=== PATIENT | male | born 1955 | race Caucasian/White ===

== ENCOUNTER 2019-11-22 08:52 | Outpatient (CLI) | payer OTHER, SELFPAY ==
[2019-11-22 09:33] LABS: Basophils Percent Auto 0.4 % (0.2-1.2); Eosinophils Absolute Auto 0.4 K/mm3 (0-0.3); Eosinophils Percent Auto 4.4 % (0-4.4); Hematocrit 35.6 % (42.0-52.0); Hemoglobin 11.9 g/dL (14.0-18.0); Immature Granulocyte Absolute 0.05 K/mm3 (0.00-0.031); Immature Granulocyte Percent A 0.6 % (0-0.5); Lymphocytes Percent Auto 16.4 % (18.3-44.2); Mean Corpuscular HGB Conc 33.4 g/dl (32-36); Mean Corpuscular Hemoglobin 29.4 pg (26-34); Mean Corpuscular Volume 87.9 fl (80-100); Monocytes Absolute Auto 0.6 K/mm3 (0.1-0.6); Monocytes Percent Auto 7.7 % (2.6-8.5); Neutrophils Absolute Auto 5.6 K/mm3 (1.3-6.7); Neutrophils Percent Auto 70.5 % (45.5-73.1); Platelet Count Result 278 k/mm3 (150-375); Red Blood Count 4.05 M/mm3 (4.6-6.20)
--- NOTE | 2019-11-22 09:36 | ECG_ITS ---
Measurements Intervals [place] Rate: 91 P: 71 MS: 145 QRS: -14 QRSD: 97 T: 91 QT: 355 QTc: 437 Interpretive Statements SINUS RHYTHM WITH SINUS ARRHYTHMIA POSSIBLE LEFT ATRIAL ENLARGEMENT RSR' IN V1 OR V2, CONSIDER RIGHT VENTRICULAR HYPERTROPHY OR RIGHT VCD NONSPECIFIC ST & T-WAVE ABNORMALITY- LATERAL LEADS BASELINE ARTIFACT- II, III, AVL, AVF, V5-V6 BORDERLINE ECG Electronically Signed On 11-22-2019 9:54:09 [employer] by Boston Conde D.O.
[2019-11-22 09:41] LABS: Hemoglobin A1C 5.3 % (<5.7)
[2019-11-22 09:48] LABS: Alanine Aminotransferase 16 U/L (4-50); Albumin Level 4.2 g/dL (3.5-5.1); Alkaline Phosphatase 57 U/L (38-126); Aspartate Amino Transferase 20 U/L (17-59); Bilirubin,Total 0.5 mg/dL (0.2-1.3); Blood Urea Nitrogen 18 mg/dL (9-20); Calcium 8.2 mg/dL (8.4-10.2); Carbon Dioxide 25 mmol/L (22-30); Chloride 94 mmol/L (98-107); Cholesterol 168 mg/dL (0-200); Estimated Glomerular Filt Rate > 60; Glucose 104 mg/dL (75-110); HDL Direct 63 mg/dL; Potassium 4.2 mmol/L (3.4-5.0); Sodium 133 mmol/L (137-145); Triglycerides 98 mg/dL (<150)
[2019-11-22 09:58] LABS: LDL Cholesterol Direct 84 mg/dL
[2019-11-22 10:06] LABS: Iron 56 ug/dL (49-181)
[2019-11-22 10:16] LABS: Percent Iron Saturation 20 % (20-50)
[2019-11-22 10:18] LABS: Prostate Specific Antigen 0.6 ng/mL (< OR = 4.0)
== END 2019-11-22 08:53 | disposition home or self-care (01) ==
PROVIDERS: PCP Internal Medicine; Visit Provider Internal Medicine
DX: I10 Essential (primary) hypertension (principal); Z79.899 Other long term (current) drug therapy; Z12.5 Encounter for screening for malignant neoplasm of prostate; D64.9 Anemia, unspecified
CPT/HCPCS: 36415; 80053; 80061; 82728; 83036; 83540; 83550; 84153; 84443; 85025; 93005; G0103

== ENCOUNTER 2019-12-09 13:49 | Outpatient (CLI) | payer OTHER, SELFPAY ==
--- NOTE | 2019-12-09 14:03 | ECHO_ITS ---
Patient Info Name: Hi Bonner Age: 64 years : 1955 Gender: Male Ht: 66 in Wt: 160 lbs BSA: 1.85 m2 HR: 80 bpm BP: 144 / 89 mmHg Heart Rhythm: Sinus Arrhythmia Technical Quality: Good Exam Date: 12/09/2019 2:11 PM Exam Location: [facility] Patient Status: Outpatient Admit Date: 12/09/2019 Staff Ordering Physician: Prosper Brannon MD [employer] Priming Operator: Vladislav Moore RDCS Attending Provider: Prosper Brannon MD Exam Type: CA echo doppler color flow Study Info Indications R01.1 - Cardiac murmur, unspecified Complete two-dimensional, color flow and Doppler transthoracic echocardiogram is performed. History/Risk Factors Murmur, palpitations. Summary 1. Left ventricular chamber dimension is mildly enlarged. 2. Left ventricular systolic function is normal, estimated at 55-60%. 3. There is mildly increased left ventricular wall thickness. 4. The left ventricular diastolic function is normal. 5. E/e' 9 is minimally elevated. 6. Left atrial chamber dimension is severely enlarged. 7. The mitral valve has moderate posterior prolapse. 8. There is mild mitral valve regurgitation. 9. There is mild tricuspid valve regurgitation. 10. Moderate pulmonary hypertension, estimated pulmonary arterial systolic pressure is 50 mmHg. Left Ventricle E/e' 9 is minimally elevated. Left ventricular chamber dimension is mildly enlarged. Left ventricular systolic function is normal, estimated at 55-60%. There is mildly increased left ventricular wall thickness. The left ventricular diastolic function is normal. Right Ventricle Right ventricular chamber dimension is normal. Right ventricular systolic function is normal. Left Atria Left atrial chamber dimension is severely enlarged. Right Atria Right atrial chamber dimension is normal. Aortic Valve The aortic valve is trileaflet. There is no aortic valve stenosis. There is no aortic valve regurgitation. Pulmonic Valve There is no pulmonic regurgitation. Mitral Valve The mitral valve has moderate posterior prolapse. There is no mitral valve stenosis. There is mild mitral valve regurgitation. Tricuspid Valve There is mild tricuspid valve regurgitation. Moderate pulmonary hypertension, estimated pulmonary arterial systolic pressure is 50 mmHg. Pericardium/Pleural There is no pericardial effusion. Inferior Vena Cava Normal inferior vena cava with >50% collapse upon inspiration consistent with normal right atrial pressure, 5 mmHg. Aorta The aortic root size at the sinus of Valsalva is normal. Left Ventricular Outflow Tract Name Value Normal LVOT 2D LVOT Diameter 2.0 cm LVOT Doppler LVOT Peak Gradient 5 mmHg LVOT Mean Gradient 2 mmHg LVOT VTI 14 cm LVOT VTI/AV VTI Ratio 0.8 LVOT Stroke Volume 45 ml LVOT CO 3.5 l/min LVOT CI 1.9 l/min/m2 Mitral Valve
== END 2019-12-09 13:50 | disposition home or self-care (01) ==
PROVIDERS: PCP Internal Medicine; Visit Provider Internal Medicine
DX: R01.1 Cardiac murmur, unspecified (principal); I10 Essential (primary) hypertension; I51.7 Cardiomegaly; I34.1 Nonrheumatic mitral (valve) prolapse; I08.1 Rheumatic disorders of both mitral and tricuspid valves; I27.20 Pulmonary hypertension, unspecified
CPT/HCPCS: 93306

== ENCOUNTER 2021-01-13 13:04 | Inpatient (IN) | payer OTHER, SELFPAY ==
[2021-01-13] VITALS (24 sets, daily range): BP systolic 73–128; BP diastolic 48–105; PULSE 87–147; RESP 16–22; TEMP 36.1–36.6; O2SAT 93–100
--- NOTE | ~2021-01-13 | US_ITS ---
EXAMINATION: US venous doppler [facility] DATE: 01/14/2021 11:54 INDICATION: Lower limb edema. TECHNIQUE: Grayscale ultrasound images without and with compression and Doppler ultrasound images of the bilateral lower extremity veins were obtained. COMPARISON: None. FINDINGS: The visualized portions of right common femoral vein, profunda (deep) femoral vein, femoral vein, pop liteal vein, peroneal veins, posterior tibial veins, and greater saphenous vein outflow are patent. The visualized portions of left common femoral vein, profunda femoral vein, femoral vein, popliteal v ein, peroneal veins, posterior tibial veins, and greater saphenous vein outflow are patent. IMPRESSION: 1. No deep venous thrombosis. Reviewed, dictated and finalized at location B.
--- NOTE | ~2021-01-13 | US_ITS ---
EXAMINATION: US abdomen limited DATE: 01/14/2021 11:54 INDICATION: Abnormal liver function tests. TECHNIQUE: Multiple grayscale and Doppler ultrasound images of the abdomen were obtained. COMPARISON: Chest CT 01/14/2021 FINDINGS: The pancreas is obscured by bowel gas. The liver is normal without focal lesion. No liver s urface nodularity. There is bidirectional flow in main portal vein. The gallbladder is normal in size . No gallstones or gallbladder wall thickening. There was no sonographic Escoto sign. The common duct is normal and measures 1 mm. IMPRESSION: 1. Bidirectional flow in main portal vein, which may be seen with right heart failure or tricuspid re gurgitation. Reviewed, dictated and finalized at location B. IMPRESSION: 1. Bidirectional flow in main portal vein, which may be seen with right heart f ailure or tricuspid regurgitation.
--- NOTE | ~2021-01-13 | CT_ITS ---
EXAMINATION:CT chest high resolution wo co DATE: 01/14/2021 11:06 INDICATION: Aortic arch abnormality. Lung infiltrates. TECHNIQUE: Computed tomography (CT) of the chest was performed without intravenous contrast. Automate d exposure control and iterative reconstruction technique were employed. The dose-length product (DLP ) was 177.77 mGy-cm. COMPARISON: Chest single view 01/13/2021 FINDINGS: There is elevation of left hemidiaphragm. There are small pleural effusions, right worse th an left. There are patchy airspace and groundglass opacities in right lung. There is mild atelectasis in left lung. A calcified left lung nodules consistent with old granulomatous disease. 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 Cardiomegaly is noted. There are calcific ations of the coronary arteries and aortic valve. No pericardial effusion. There is thoracic levoscol iosis. IMPRESSION: 1. Patchy airspace and groundglass opacities in right lung, consistent with pneumonia versus asymmetr ic pulmonary edema. 2. Small pleural effusions, right worse than left. 3. Cardiomegaly. 4. Right-sided aortic arch with aberrant left subclavian artery. 5. Elevation of left hemidiaphragm. Reviewed, dictated and finalized at location B. IMPRESSION: 1. Patchy airspace and groundglass opacities in right lung, consistent with pne umonia versus asymmetric pulmonary edema. 2. Small pleural effusions, right worse than left. 3. Cardiomegaly. 4. Right-sided aortic arch with aberrant left subclavian artery. 5. Elevation of left hemidiaphragm.
--- NOTE | ~2021-01-13 | XR_ITS ---
EXAMINATION: XR chest 1V portable DATE: 01/13/2021 14:21 INDICATION: Shortness of breath TECHNIQUE: frontal view of the chest was obtained. COMPARISON: None FINDINGS: Elevation of the left hemidiaphragm. Patchy airspace opacities in the right mid to lower and left low er lung zones. Blunting at the right costophrenic angle consistent with small right pleural effusion. No pneumothorax. Enlarged cardiac silhouette. Abnormal mediastinal contour suggesting a right-sided aortic arch. Upper thoracic levoscoliosis. Old healed left clavicle fracture deformity. IMPRESSION: 1. Patchy opacities in the right mid to lower and left lower lung zones suspicious for pneumonia. 2. Small left pleural effusion. 3. Elevation of the left hemidiaphragm. 4. Enlarged cardiac silhouette which could be due to cardiomegaly and/or pericardial effusion.. 5. Abnormal mediastinal contour suggesting an anatomic variant right-sided aortic arch. Correlate wit h clinical history and any prior outside imaging. Alternatively could consider contrast-enhanced ches t CT for further evaluation. Reviewed, dictated and finalized at location A. IMPRESSION: 1. Patchy opacities in the right mid to lower and left lower lung zones suspici ous for pneumonia. 2. Small left pleural effusion. 3. Elevation of the left hemidiaphragm. 4. Enlarged cardiac silhouette which could be due to cardiomegaly and/or perica rdial effusion.. 5. Abnormal mediastinal contour suggesting an anatomic variant right-sided aort ic arch. Correlate with clinical history and any prior outside imaging. Alterna tively could consider contrast-enhanced chest CT for further evaluation.
--- NOTE | ~2021-01-13 | CT_ITS ---
EXAMINATION: CT abdomen pelvis w con DATE: 01/15/2021 15:20 INDICATION: Rectosigmoid mass. TECHNIQUE: Computed tomography (CT) of the abdomen and pelvis was performed with 100 mL Omnipaque-350 intravenous contrast. Automated exposure control and iterative reconstruction technique were employe d. The dose-length product was 518.31 mGy-cm. COMPARISON: Chest CT dated 01/14/2021 FINDINGS: Elevation of the left hemidiaphragm. Small posteriorly layering right pleural effusion with dependent compressive atelectasis in the right lower lobe. Moderate cardiomegaly. No pericardial effusion. Seema er, visualized portion of the spleen, pancreas and right adrenal gland are normal. There is diffuse t hickening of the left adrenal gland without discrete adrenal mass. Bilateral kidneys are normal. Ther e is a halo of haziness surrounding the otherwise normal-appearing gallbladder. Circumferential enhan cing wall thickening at the rectosigmoid junction suspicious for malignancy. No bowel obstruction. Th e appendix is not visualized. No pericecal inflammatory change to suggest acute appendicitis. There are a few bladder diverticula. Small bilateral fat-containing inguinal hernias. Mild lumbar levocurva ture with moderate spondylosis. No free intraperitoneal gas or fluid. Diffuse body wall edema, mesent eduin and retroperitoneal edema. Multiple mildly prominent but still normal-sized lymph nodes extendin g bilaterally from the inguinal regions into the retroperitoneal abdomen. No pathologically enlarged lymphadenopathy. Mild lumbar levocurvature with moderate spondylosis. No suspicious lytic or blastic bone lesions. IMPRESSION: 1. Circumferential wall thickening at the rectosigmoid junction suspicious for malignancy. No definit emilia metastatic disease. 2. Moderate cardiomegaly. 3. Small right pleural effusion. 4. Mild diffuse soft tissue edema in the body wall and mesenteric and retroperitoneal fat. Reviewed, dictated and finalized at location A. IMPRESSION: 1. Circumferential wall thickening at the rectosigmoid junction suspicious for malignancy. No definitive metastatic disease. 2. Moderate cardiomegaly. 3. Small right pleural effusion. 4. Mild diffuse soft tissue edema in the body wall and mesenteric and retroperi toneal fat.
--- NOTE | 2021-01-13 13:31 | ECG_ITS ---
Measurements Intervals [place] Rate: 135 P: AL: 0 QRS: -39 QRSD: 109 T: 168 QT: 323 QTc: 485 Interpretive Statements ATRIAL FIBRILLATION WITH RAPID VENTRICULAR RESPONSE LEFT AXIS DEVIATION INCOMPLETE RIGHT BUNDLE BRANCH BLOCK BORDERLINE ST-T WAVE ABNORMALITY- ANTEROLAT/HIGH LAT LEADS BASELINE WANDER- I, III ABNORMAL ECG Electronically Signed On 01-13-2021 21:49:28 CDT by Boston Conde D.O.
--- NOTE | 2021-01-13 13:41 | ED.GENADULT ---
HPI - General Adult General Chief complaint: Weakness Stated complaint: UNABLE TO AMBULATE,LE EDEMA Time Seen by Provider: 01/13/21 13:10 Source: patient History of Present Illness HPI narrative: Patient is a 65 y/o male complaining of severe weakness starting today. He states that he is unable to get up from couch today. There is no know alleviating or exacerbating factor. He also complains of SOB, bilateral leg swelling. He has no chest pain. Of note, he has A fib on Amiodarone. He has history of GI bleed, but refused work up in the past. Related Data Home Medications Medication Instructions Recorded Confirmed lisinopril-hydrochlorothiazide 1 tablet PO DAILY 01/13/21 01/13/21 metoprolol tartrate 25 mg PO Q6H 01/13/21 01/13/21 Allergies Allergy/AdvReac Type Severity Reaction Status Date / Time No Known Allergies Allergy Verified 01/13/21 14:21 Review of Systems Constitutional: Constitutional: Denies chills, Denies fever(s), Denies headache(s) and Reports weakness Eyes: Eyes: Denies blurry vision ENT: Denies headache(s) and Denies neck pain Cardiovascular: Cardiovascular: Denies chest pain, Reports leg edema and Reports dyspnea Respiratory: Respiratory: Denies cough and Reports dyspnea Gastrointestinal: Gastrointestinal: Denies abdominal pain, Denies diarrhea, Denies nausea and Denies vomiting Genitourinary: Genitourinary: Denies hematuria and Denies dysuria Musculoskeletal: Musculoskeletal: Denies back pain and Denies neck pain Neurologic: Denies headache(s) and Reports weakness [facility] Past Medical History Medical History Anemia Family History Family History (Updated 01/13/21 @ 16:54 by NAVDEEP Suresh) Mother Pleurisy Social History Social History Smoking status: Never smoker Alcohol intake: current Drinks per week: 7 Gender identity (if verbalized by the patient): Male Spiritual care concerns: No Exam Const: General: no acute distress and well developed Orientation/consciousness: oriented to person, oriented to place, oriented to time and patient oriented x3 HENMT: Head: normocephalic Ears: external ears normal General nose exam: Normal external nose present Eyes: General: appearance normal, both eyes and all related structures Conjunctivae: conjunctivae normal Neck: Neck: normal visual inspection and full ROM Chest: Chest palpation & inspection: normal inspection of the chest and no tenderness Resp: Effort & Inspection: normal respiratory effort Auscultation: clear to auscultation bilaterally Cardio: Rate: tachycardic Rhythm: abnormal rhythm irregularly irregular GI: GI Palp: No abdominal tenderness and Yes Soft to palpation Skin: General skin exam: normal color and turgor normal Neuro: General: oriented to person, oriented to place, oriented to time and patient oriented x3 Cognition (Neuro): normal cognition Extrem: General: normal to inspection, full ROM and edema bilateral Psych: Appearance: grossly normal Mental Status: mental status grossly normal Affect: normal affect Course Consultations Consultation #1: Discussed with Dr. Conde, who agrees to consult. He will see the patient tomorrow. Date: 01/13/21 Time: 14:48 Consultation #2: Discussed with BURTON Vásquez, who agrees to admit. Date: 01/13/21 Time: 15:03 Consultation #3: Discussed with Dr. Jennings, who agrees to consult. He states that Dr. Xiong will see the patient tomorrow. Date: 01/13/21 Time: 15:28 Vital Signs Vital signs: Vital Signs Temperature 36.5 C 01/13/21 13:04 Pulse Rate 129 H 01/13/21 13:04 Respiratory Rate 22 H 01/13/21 13:04 Blood Pressure 106/85 01/13/21 13:04 Pulse Oximetry 99 01/13/21 13:04 Temperature 36.1 C L 01/13/21 18:46 Pulse Rate 120 H 01/13/21 18:46 Respiratory Rate 16 01/13/21 18:46 Blood Pressure 120/78 01/13/21 18:46 Pulse Ox
[2021-01-13] MEDS: DIGOXIN INJ 250 MCG/ML 2 ML AMP (*BKC) 500 MCG IV PUSH (14:17)
[2021-01-13] MEDS: FUROSEMIDE INJ 40 MG/4 ML VIAL IV PUSH (14:17)
[2021-01-13 14:20] LABS: Hematocrit 23.1 % (42.0-52.0); Mean Corpuscular HGB Conc 28.1 g/dl (32-36); Mean Corpuscular Hemoglobin 18.2 pg (26-34); Mean Corpuscular Volume 64.5 fl (80-100); Mean Platelet Volume 9.9 fl (7.4-10.4); Platelet Count Result 562 k/mm3 (150-375); Red Blood Count 3.58 M/mm3 (4.6-6.20); Red Cell Distribution Width 19.7 % (11.5-14.5); White Blood Count 16.9 K/mm3 (4.5-10.0)
[2021-01-13 14:30] LABS: INR 1.2; Prothrombin Time 16.1 Seconds (11.1-14.7)
[2021-01-13 14:31] LABS: Partial Thromboplastin Time 30.6 SECONDS (22.3-36.8)
[2021-01-13 14:34] LABS: Alanine Aminotransferase 218 U/L (4-50); Albumin Level 4.1 g/dL (3.5-5.1); Alkaline Phosphatase 178 U/L (38-126); Anion Gap 13 mmol/L (8-16); Aspartate Amino Transferase 204 U/L (17-59); Bilirubin,Total 0.8 mg/dL (0.2-1.3); Blood Urea Nitrogen 58 mg/dL (9-20); Calcium 8.3 mg/dL (8.4-10.2); Carbon Dioxide 23 mmol/L (22-30); Chloride 94 mmol/L (98-107); Estimated CRCL calculation 53 ml/min; Estimated Glomerular Filt Rate > 60; Glucose 98 mg/dL (75-110); Potassium 4.2 mmol/L (3.4-5.0); Sodium 130 mmol/L (137-145)
[2021-01-13 14:38] LABS: Hemoglobin 6.5 g/dL (14.0-18.0)
[2021-01-13 14:44] LABS: Band Neutrophils Percent 1 % (0-6); Lymphocytes Absolute Manual 1.35 K/mm3 (1.1-4.5); Monocytes Absolute Manual 0.33 K/mm3 (0.1-0.90); Monocytes Percent Manual 2 % (3-9); Neutrophils Absolute Manual 15.21 K/mm3 (1.3-6.7); Neutrophils Percent Manual 89 % (46-73); Nucleated Red Blood Cells 14 %; Total Cells Counted 100
[2021-01-13 14:45] LABS: Platelet Estimate Increased (Adequate)
[2021-01-13 14:46] LABS: NT Pro B Type Natriuretic Pept 10700 PG/ML (5-100); Troponin I 0.013 ng/mL (0.000-0.034)
[2021-01-13 14:47] LABS: Target Cells 1+ (NORMAL)
[2021-01-13 14:48] LABS: Anisocytosis 3+ (NORMAL); Hypochromasia 1+ (NORMAL)
[2021-01-13 14:53] LABS: Acanthocytes 1+ (NORMAL)
--- NOTE | 2021-01-13 16:46 | ADMGEN ---
This patient, Hi Bonner, was admitted to IMU Room 201-01 at 1625. Patient/family oriented to hospital policies and general routines including ID bracelet, bed and alarms, visiting hours, pain management, procedures, bathroom and other care routines, personal items, smoking policy, room service/diet, and visiting hours. Information on how to activate the Rapid Response Team has been discussed. Patient/Family are encouraged to report perceived risks to care and to ask questions if they do not understand what they are told or what they should do.
[2021-01-13] MEDS: TUBING, BLOOD PLUM PUMP TUBING 1 EACH XX (17:32)
[2021-01-13] MEDS: SODIUM CHLORIDE 0.9% IV 250 ML 30 ML IV CONT ×2 (17:32→23:00)
[2021-01-13 19:08] LABS: Lactate Dehydrogenase 1092 U/L (313-618)
--- NOTE | 2021-01-13 19:15 | PM.IMHP ---
H&P: HPI History of Present Illness Date/Time: 01/13/21 19:15 Chief Complaint: Generalized weakness. Narrative: This is a pleasant 65-year-old male with diastolic congestive heart failure, mitral valve prolapse, and atrial fibrillation who presented to the emergency department earlier today via EMS from home for evaluation of generalized weakness. Initially he reported that he had sudden onset of weakness yesterday to the point where he could not even get up out of bed this morning to ambulate however with further questioning it sounds as though he has become progressively more weak over the last couple of months. Aside from the weakness, he also notes progressive dyspnea on exertion, orthopnea, increasing lower extremity edema, and feelings of irregular heartbeat. He was diagnosed with atrial fibrillation on 12/11/2020 and was started on amiodarone by his primary care provider. Although he was not started on anticoagulation due to iron deficiency anemia and the fact that he continues to refuse evaluation for such despite Hemoccult-positive stool. He was recently seen by his general maintenance mechanic, Dr. Conde and was started on metoprolol tartrate 25 mg due to rapid heart rate. In the ED today he was found to have worsening anemia with a hemoglobin and hematocrit of 6.5 and 23.1 respectively and he is being admitted in this setting. Additionally he was in atrial fibrillation with rapid ventricular response and was given a dose of digoxin with some improvement in his rate. At the time my evaluation he admits to being quite anxious and says he worries quite a bit. He thinks maybe he saw a little bit of blood in his stool within the last week or so however not in significant quantities. He is not having any chest pain or pleuritic pain. He also denies fever, chills, and sweats. No sinus congestion, rhinorrhea, otalgia, or odynophagia. He denies cough. No sick contacts. Appetite has been as per usual. He has not had nausea or vomiting. Review of Systems Review of Systems: Narrative: Twelve systems were reviewed with pertinent positives and negatives as per HPI. Denies sick contacts. No exposure to those positive for COVID-19. He belches frequently. No heartburn or indigestion. He denies abdominal bloating, epigastric, and abdominal pain. He does not use NSAIDs. He drinks about 5 cups of coffee a day and maybe 1 beer a night. No history of thyroid disease or sleep apnea. Except as documented, all other systems were reviewed and are negative. [facility] Past Medical History Medical History (Updated 01/13/21 @ 20:35 by Thalia Hopkins PA-C) Atrial fibrillation Congestive heart failure Echocardiogram in November 2019 showed ejection fraction 55 to 60% with mild LVH and severe left atrial enlargement. Dyslipidemia Essential hypertension Iron deficiency anemia Iron studies in November 2020 as follows: Total iron < 10, % saturation 1.10, TIBC 456, ferritin 3. Mitral valve prolapse Moderate posterior mitral valve prolapse on echocardiogram dated 12/09/2019. Surgical History Surgical History (Updated 01/13/21 @ 20:29 by Thalia Hopkins PA-C) No history of previous surgery Family History Family History Mother Pleurisy Social History Social History (Updated 01/13/21 @ 20:29 by Thalia Hopkins PA-C) Social History: Surrogate decision maker: Giorgi Bonner, brother. Code status: Full code. Smoking status: Never smoker Alcohol intake: current Drinks per week: 7 Substance use: never Additional living arrangements comments: The patient shares a home in [place] with his cat, Brian. Additional occupation/education comments: Disabled. Gender identity (if verbalized by the patient): Male Spiritual care concerns: No Meds Home Medications and Allergies Home Medications Medication Instructions Recorded Confirmed Type amiodarone 200 mg tablet 200 mg PO B
[2021-01-13 19:21] LABS: Troponin I 0.018 ng/mL (0.000-0.034)
[2021-01-13] MEDS: FUROSEMIDE INJ 40 MG/4 ML VIAL 20 MG IV PUSH (21:12)
[2021-01-13 21:43] LABS: Add Urine Microscopic? YES; Appearance Urine Clear (Clear); Bilirubin Urine Negative (Negative); Blood Urine Negative (Negative); Color Urine Yellow (Yellow); Glucose Urine UA Negative (Negative); Ketones Urine Negative (Negative); Leukocyte Esterase Ur Trace LEU/UL (Negative); Mucus Urine Rare /lpf; Nitrate Urine Negative (Negative); Protein Urine Negative (Negative); RBC Urine 0-2 /hpf (0-2); Specific Grav Ur 1.011 (1.001-1.035); Squamous Epithelial Cell Urine Rare /hpf (Few); Urobilinogen Urine Negative mg/dL (<2.0); WBC Urine 0-3 /hpf
[2021-01-13] MEDS: PANTOPRAZOLE SODIUM IV 40 MG VIAL IV PUSH (21:46)
[2021-01-13] MEDS: METOPROLOL TARTRATE 25 MG TABLET PO (21:46)
[2021-01-13 21:55] LABS: Alanine Aminotransferase 221 U/L (4-50); Albumin Level 3.8 g/dL (3.5-5.1); Alkaline Phosphatase 158 U/L (38-126); Aspartate Amino Transferase 196 U/L (17-59); Bilirubin,Total 0.7 mg/dL (0.2-1.3); Creatine Kinase 368 U/L (55-170)
[2021-01-13 22:44] LABS: Troponin I 0.015 ng/mL (0.000-0.034)
[2021-01-13 23:29] LABS: Free T4 Free Thyroxine Reflex 1.43 ng/dL (0.78-2.19)
[2021-01-14] VITALS (24 sets, daily range): BP systolic 84–125; BP diastolic 50–80; PULSE 94–105; RESP 16–20; TEMP 36.1–36.7; O2SAT 94–96; BMI 23.1
[2021-01-14 00:58] LABS: Total Triiodothyronine (T3) 0.56 NG/ML (0.97-1.69)
[2021-01-14 05:03] LABS: Hematocrit 25.9 % (42.0-52.0); Hemoglobin 7.8 g/dL (14.0-18.0); Mean Corpuscular HGB Conc 30.1 g/dl (32-36); Mean Corpuscular Hemoglobin 20.3 pg (26-34); Mean Corpuscular Volume 67.3 fl (80-100); Mean Platelet Volume 9.8 fl (7.4-10.4); Platelet Count Result 431 k/mm3 (150-375); Red Blood Count 3.85 M/mm3 (4.6-6.20); Red Cell Distribution Width 22.3 % (11.5-14.5); White Blood Count 15.2 K/mm3 (4.5-10.0)
[2021-01-14 05:13] LABS: INR 1.2
[2021-01-14 05:14] LABS: Partial Thromboplastin Time 34.3 SECONDS (22.3-36.8)
[2021-01-14 05:28] LABS: Alanine Aminotransferase 202 U/L (4-50); Albumin Level 3.2 g/dL (3.5-5.1); Alkaline Phosphatase 145 U/L (38-126); Anion Gap 7 mmol/L (8-16); Aspartate Amino Transferase 154 U/L (17-59); Bilirubin,Total 0.8 mg/dL (0.2-1.3); Blood Urea Nitrogen 52 mg/dL (9-20); Calcium 7.5 mg/dL (8.4-10.2); Carbon Dioxide 29 mmol/L (22-30); Chloride 92 mmol/L (98-107); Estimated CRCL calculation 62 ml/min; Estimated Glomerular Filt Rate > 60; Glucose 96 mg/dL (75-110); Potassium 3.2 mmol/L (3.4-5.0); Sodium 128 mmol/L (137-145)
[2021-01-14] MEDS: METOPROLOL TARTRATE 25 MG TABLET PO ×4 (06:33→23:30)
[2021-01-14] MEDS: PANTOPRAZOLE SODIUM IV 40 MG VIAL IV PUSH ×2 (08:22→21:01)
--- NOTE | 2021-01-14 08:47 | PM.CNCAR ---
Assessment and Plan Assessment and plan (1) Atrial fibrillation with rapid ventricular response: Code(s): I48.91 - Unspecified atrial fibrillation Status: Acute Assessment and Plan: [id number] 1. Rate control as Amiodarone is on hold due to elevated LFT. LFT could be elevated from Amiodarone or passive congestion or other. Not on aspirin or anticoagulation due to GI bleed/anemia. May add Digoxin if needed for rate control. (2) CHF (congestive heart failure): Qualifiers: Heart failure chronicity: acute on chronic Heart failure type: diastolic Qualified Code(s): I50.33 - Acute on chronic diastolic (congestive) heart failure Code(s): I50.9 - Heart failure, unspecified Status: Acute Assessment and Plan: Obtain echo. Continue Lasix. (3) Profound anemia: Code(s): D64.9 - Anemia, unspecified Status: Acute Assessment and Plan: Previously, patient did not want anything done including endoscopies. History of Present Illness History of Present Illness Consult date/time: 01/14/21 08:47 Reason for consult: Atrial fib with RVR. 65 yr old man who is a patient of Dr. Brannon presents to ER yesterday due to weakness and sob. He has a history of hemoccult positive stools in Jun 2020, anemia, dyslipidemia, hypertension. Reports for last several days he felt weaker and had trouble ambulating with his cane. He also reported more sob. No chest pains. He states he noted slight blood in his stools. His edema did not resolve by morning like it was accustomed to happening previously. In ED he was in atrial fib with RVR and had liver enzyme elevation of AST 204, ALT 218. Amiodarone is on hold not as it was started a month ago on 12/12/20. CXR shows patchy opacity in right mid and lower lung zones c/w pneumonia; small left pleural effusion. EKG shows atrial fib at 135 bpm, IRBBB, borderline ST-T wave in anterolat/high lat leads. Normally, he can walk slowly with his cane around [employer] without any problems. He states it was due to CHF 10 years ago. He has ankle edema that he treats with compression stockings and states it resolves by morning. Denies chest pain, sob, orthopnea, PND, palpitations. Cardiovascular Procedures Echo/MUGA:: 12/09/19 Echo: EF 55-60%, mild LVH, severe LAE, mod posterior MVP, mild MR/TR, RVSP 50 mmHg. Electrophysiology:: 01/01/21 EKG: Atrial fibrillationi at 129 bpm, IRBBB, borderline ST-T wave in high lateral leads, QTc 384 ms. 12/12/20 EKG: Atrial fibrillation at 143 bpm, delayed R/S transition. QTc 359 ms. 11/22/19 EKG: Sinus rhythm with sinus arrhythmia, RSR', borderline ST-T wave in lateral leads. Reason For Visit: afib with rvr, anemia Review of Systems Review of Systems: All systems reviewed & are unremarkable except as noted in HPI and below Constitutional: Constitutional: Reports as per HPI, Denies chills, Reports fatigue and Denies fever(s) Cardiovascular: Cardiovascular: Reports as per HPI, Denies chest pain, Reports leg edema and Denies lightheadedness Respiratory: Respiratory: Reports as per HPI and Reports dyspnea Gastrointestinal: Gastrointestinal: Reports as per HPI and Denies abdominal pain Genitourinary: Genitourinary: Reports as per HPI and Denies dysuria Musculoskeletal: Musculoskeletal: Reports as per HPI Neurologic: Reports as per HPI, Denies dizziness and Denies syncope [facility] Past Medical History Medical History (Updated 01/13/21 @ 20:35 by Thalia Hopkins PA-C) Atrial fibrillation Congestive heart failure Echocardiogram in November 2019 showed ejection fraction 55 to 60% with mild LVH and severe left atrial enlargement. Dyslipidemia Essential hypertension Iron deficiency anemia Iron studies in November 2020 as follows: Total iron < 10, % saturation 1.10, TIBC 456, ferritin 3. Mitral valve prolapse Moderate posterior mitral valve prolapse on echocardiogram dated 12/09/2019. Surgical History Surgical History (Updated 01/13/21 @ 20:29
[2021-01-14] MEDS: PERFLUTREN LIPID MICROSPHERES 1.5 ML VIAL DILUTED TO 10 ML TOTAL VOLUME IV PUSH (13:13)
--- NOTE | 2021-01-14 14:02 | WPDGICN ---
Assessment and Plan Assessment and plan (1) Acute on chronic blood loss anemia: Code(s): D62 - Acute posthemorrhagic anemia Status: Acute Assessment and Plan: symptomatic iron deficiency anemia, will proceed with egd and colonoscopy, need to assess if GI blood loss he has afib and currently is not taking blood thinners blood transfusion, keep hb>7 (2) Occult blood in stools: Code(s): R19.5 - Other fecal abnormalities Status: Acute Assessment and Plan: will assess with scopes medical treatment (3) Elevated LFTs: Code(s): R79.89 - Other specified abnormal findings of blood chemistry Status: Acute Assessment and Plan: probably combination for passive liver congestion/heart failure exacerbation, medication, profound anemia, etc abdominal ultrasound ordered will get hepatitis panel (4) Acute exacerbation of congestive heart failure: Code(s): I50.9 - Heart failure, unspecified Status: Acute Assessment and Plan: by cardiology, exacerbated also by anemia (5) Atrial fibrillation with rapid ventricular response: Code(s): I48.91 - Unspecified atrial fibrillation Status: Acute (6) Leg edema: Code(s): R60.0 - Localized edema Status: Acute GI Consult Note Consult date/time: 01/14/21 14:02 Reason for consult: acute on chronic blood loss anemia HPI: Hi Bonner is a 65 year old male diastolic congestive heart failure, mitral valve prolapse, and atrial fibrillation who was admitted yesterda via EMS from home because progressive generalized weakness. He noted having more difficulty moving around and more shortness of breath on exertion last several days, finally called for help. Also noted increased lower extremity edema, and irregular heartbeat. He was diagnosed with atrial fibrillation on 12/11/2020 and was started on amiodarone. ER evaluated revealed hemoglobin 6.5 and FOBT +. He denies overt GIB, never had scopes. BUN 58, creatinine 1.2, also transaminases 150-200. CT chest reviewed, showed patchy airspace and groundglass opacities in right lung, consistent with pneumonia versus asymmetric pulmonary edema, Small pleural effusions, right worse than left. Cardiomegaly. Review of Systems Constitutional: Constitutional: Reports fatigue and Reports weakness Eyes: Eyes: Reports no additional eye complaints ENT: Reports Normal hearing present Cardiovascular: Cardiovascular: Denies chest pain and Reports palpitations Respiratory: Respiratory: Reports dyspnea on exertion Gastrointestinal: Gastrointestinal: Denies abdominal pain, Denies nausea and Denies vomiting Genitourinary: Genitourinary: Denies dysuria Musculoskeletal: Musculoskeletal: Denies neck pain Integumentary/Breasts: Skin/Breast: Denies dry skin Neurologic: Denies confusion Psychiatric: Psychiatric: Reports no additional psychiatric complaints [facility] Past Medical History Medical History (Updated 01/14/21 @ 14:13 by Tyler Guerra MD) Acute on chronic blood loss anemia Atrial fibrillation Congestive heart failure Echocardiogram in November 2019 showed ejection fraction 55 to 60% with mild LVH and severe left atrial enlargement. Dyslipidemia Essential hypertension Iron deficiency anemia Iron studies in November 2020 as follows: Total iron < 10, % saturation 1.10, TIBC 456, ferritin 3. Leg edema Mitral valve prolapse Moderate posterior mitral valve prolapse on echocardiogram dated 12/09/2019. Occult blood in stools Surgical History Surgical History (Updated 01/13/21 @ 20:29 by Thalia Hopkins PA-C) No history of previous surgery Family History Family History Mother Pleurisy Social History Social History (Updated 01/13/21 @ 20:29 by Thalia Hopkins PA-C) Social History: Surrogate decision maker: Giorgi Bonner, brother. Code status: Full code. Smoking status: Never s
--- NOTE | 2021-01-14 14:06 | PM.IMPN ---
Subjective Date/time seen: 01/14/21 14:06 My legs are swollen Review of Systems Review of Systems: Narrative: Patient is overall a really poor historian however he states that he has had black stools for quite some time which he attributes to taking iron supplement Constitutional: Constitutional: Reports fatigue Comments: Fatigue, no fevers no chills no rigors Eyes: Comments: No vision changes Cardiovascular: Comments: Bilateral lower extremity swelling, palpitations, orthopnea. Respiratory: Comments: Shortness of breath worse with activity, no cough no sputum production Gastrointestinal: Gastrointestinal: Reports melena Comments: No nausea no vomiting no diarrhea no abdominal pain Musculoskeletal: Comments: Bilateral lower extremity edema Integumentary/Breasts: Comments: No rashes Neurologic: Comments: No sensorimotor deficit Exam Narrative: Exam Narrative: Patient is laying in bed Const: General: comfortable, no acute distress, alert, awake, ill appearing chronically and tired appearing Nutritional Appearance: thin Orientation/consciousness: patient oriented x3 HENMT: Head: normal to inspection, normocephalic and atraumatic Ears: hearing grossly normal bilaterally Face and sinus: normal facial exam Eyes: General: appearance normal, both eyes and all related structures Pupils: Equal, round and reactive pupils present EOM: EOMs intact bilaterally Neck: Neck: full ROM, no lymphadenopathy and no JVD Thyroid: thyroid normal Lymphatic: no lymphadenopathy noted Resp: Effort & Inspection: normal respiratory effort and able to speak in complete sentences Auscultation: clear to auscultation bilaterally Cardio: Jugular venous distension: no JVD Rate: regular rate Rhythm: regular rhythm Heart sounds: S1 normal heart sound present and S2 normal heart sound present GI: GI Palp: Yes Soft to palpation and Yes No hepatosplenomegaly present : General: Yes deferred Skin: Rashes: no rashes Wounds: no wounds Neuro: General: patient oriented x3 and CN's II-XI intact bilaterally Cranial nerves: Yes CN's II-XII intact bilaterally and Yes Equal, round and reactive pupils present Cognition (Neuro): normal cognition Speech: normal speech Gait exam (Neuro): Unable to assess gait Motor exam (neuro): 5/5 motor strength present throughout Extrem: General: edema bilateral (Lower extremities) Objective Data Vital Signs Vital Signs: Vital Signs - 24 hr 01/13/21 14:17 01/13/21 14:20 01/13/21 15:36 Temperature Pulse Rate 147 H 137 H 125 H Respiratory Rate 20 20 Blood Pressure 107/74 122/84 Pulse Oximetry 95 99 01/13/21 15:55 01/13/21 16:18 01/13/21 16:49 Temperature 97.9 F Pulse Rate 122 H 124 H 126 H Respiratory Rate 20 22 H 16 Blood Pressure 122/84 113/85 128/78 Pulse Oximetry 96 93 98 01/13/21 17:31 01/13/21 17:46 01/13/21 18:00 Temperature 97.8 F 97.1 F L Pulse Rate 104 H 108 H 120 H Respiratory Rate 18 18 Blood Pressure 112/79 126/105 H Pulse Oximetry 100 100 01/13/21 18:01 01/13/21 18:46 01/13/21 19:01 Temperature 97 F L 97 F L 97.1 F L Pulse Rate 120 H 120 H 92 Respiratory Rate 16 16 18 Blood Pressure 120/98 H 120/78 111/85 Pulse Oximetry 98 96 96 01/13/21 19:46 01/13/21 20:00 01/13/21 20:46 Temperature 97.1 F L 97.6 F Pulse Rate 92 121 H 90 Respiratory Rate 18 18 18 Blood Pressure 111/85 97/71 L Pulse Oximetry 96 97 97 01/13/21 21:46 01/13/21 22:00 01/13/21 22:55 Temperature 97 F L Pulse Rate 120 H 112 H 98 Respiratory Rate 20 Blood Pressure 77/49 L Pulse Oximetry 94 01/13/21 23:00 01/13/21 23:15 01/13/21 23:19 Temperature 97.6 F Pulse Rate 87 Respiratory Rate 18 Blood Pressure 77/49 L 73/53 L 85/48 L Pulse Oximetry 95 01/13/21 23:30 01/13/21 23:45 01/14/21 00:00 Temperature Pulse Rate 95 Respiratory Rate 18 Blood Pressure 85/48 L 80/57 L Pulse Oximetry 96 01/14/21 00:19 01/14/21 01:19 01/14/21 01:48 Tempera
[2021-01-14] MEDS: BISACODYL 5 MG TABLET EC 20 MG PO (16:16)
[2021-01-14] MEDS: polyethylene glycoL 3350 238 GM BOTTLE PO (16:16)
[2021-01-14] MEDS: FUROSEMIDE INJ 40 MG/4 ML VIAL 20 MG IV PUSH (18:12)
--- NOTE | 2021-01-14 20:48 | ECHO_ITS ---
Patient Info Name: Hi Bonner Age: 65 years : 1955 Gender: Male Ht: 67 in Wt: 147 lbs BSA: 1.78 m2 HR: 98 bpm BP: 97 / 65 mmHg Technical Quality: Good Exam Date: 01/14/2021 12:25 PM Exam Location: [facility] Patient Status: Inpatient Admit Date: 01/13/2021 Staff Ordering Physician: Thalia Hopkins PA-C Board Setter: Freda Bliss RDCS Attending Provider: Rasheed Nur MD Referring Physician: Sandeep TOSCANO; Exam Type: CA echo dop color flow w con Study Info Indications I34.1 - Nonrheumatic mitral (valve) prolapse I50.9 - Heart failure, unspecified Complete two-dimensional, color flow and Doppler transthoracic echocardiogram is performed with contrast to opacify the left ventricle and to improve the deliniation of the left ventricle endocardial borders. Contrast/Agitated Saline Contrast/Ag. Saline: Definity Amount: 1.00 ml Administered By: June Gauthier RN Vice President Of Nursing Services Existing IV Access: Yes IV Access Condition: patent with no signs of infiltration Summary 1. Left ventricular chamber dimension is normal. 2. Definity contrast administered improved wall motion interpretation. 3. Left ventricular systolic function is normal, estimated at 65-70%. 4. The left ventricular diastolic function is abnormal. 5. E/e' 12 is mildly elevated. 6. Atrial fibrillation. 7. Right ventricular systolic function is reduced based on a TAPSE 1.4 cm. 8. Left atrial chamber dimension is severely enlarged. 9. Right atrial chamber dimension is severely enlarged. 10. There is moderate aortic valve sclerosis. 11. The mitral valve has moderate posterior prolapse. 12. There is moderate mitral valve regurgitation. 13. There is moderate to severe tricuspid valve regurgitation. 14. Mild pulmonary hypertension, estimated pulmonary arterial systolic pressure is 42 mmHg. 15. There is trace pulmonic regurgitation. Left Ventricle E/e' 12 is mildly elevated. Definity contrast administered improved wall motion interpretation. Atrial fibrillation. Left ventricular chamber dimension is normal. Left ventricular systolic function is normal, estimated at 65-70%. The left ventricular diastolic function is abnormal. Right Ventricle Right ventricular systolic function is reduced based on a TAPSE 1.4 cm. Right ventricular chamber dimension is not well visualized. Left Atria Left atrial chamber dimension is severely enlarged. Right Atria Right atrial chamber dimension is severely enlarged. Aortic Valve The aortic valve is trileaflet. There is moderate aortic valve sclerosis. There is no aortic valve stenosis. There is no aortic valve regurgitation. Pulmonic Valve There is trace pulmonic regurgitation. Mitral Valve The mitral valve has moderate posterior prolapse. There is no mitral valve stenosis. There is moderate mitral valve regurgitation. Tricuspid Valve There is moderate to severe tricuspid valve regurgitation. Mild pulmonary hypertension, estimated pulmonary arterial systolic pressure is 42 mmHg. Pericardium/Pleural There is no pericardial effusion. Inferior Vena Cava Normal inferior vena cava with >50% collapse upon inspiration consistent with normal right atrial pressure, 5 mmHg. Aorta The aortic root size at the sinus of Valsalva is normal. Left Ventricular Outflow Tract Name
[2021-01-15] VITALS (22 sets, daily range): BP systolic 87–113; BP diastolic 60–74; PULSE 86–110; RESP 17–22; TEMP 36.3–36.6; O2SAT 85–98
[2021-01-15 02:15] LABS: HAV RESULT Negative (Negative); Hepatitis B Core IgM Result Negative (Negative); Hepatitis B Surface Antigen Negative (Negative)
[2021-01-15 02:55] LABS: Hepatitis C Virus Antibody Negative (Negative)
[2021-01-15] MEDS: METOPROLOL TARTRATE 25 MG TABLET PO ×4 (05:21→23:06)
[2021-01-15] MEDS: MAGNESIUM CITRATE 300 ML BTL PO (05:22)
[2021-01-15] MEDS: FUROSEMIDE INJ 40 MG/4 ML VIAL 20 MG IV PUSH (08:05)
[2021-01-15] MEDS: PANTOPRAZOLE SODIUM IV 40 MG VIAL IV PUSH (08:05)
[2021-01-15 08:21] LABS: Hematocrit 28.3 % (42.0-52.0); Hemoglobin 8.4 g/dL (14.0-18.0); Mean Corpuscular HGB Conc 29.7 g/dl (32-36); Mean Corpuscular Hemoglobin 20.4 pg (26-34); Mean Corpuscular Volume 68.9 fl (80-100); Mean Platelet Volume 9.9 fl (7.4-10.4); Platelet Count Result 410 k/mm3 (150-375); Red Blood Count 4.11 M/mm3 (4.6-6.20); Red Cell Distribution Width 22.2 % (11.5-14.5); White Blood Count 16.1 K/mm3 (4.5-10.0)
--- NOTE | 2021-01-15 08:34 | PM.PNCARD ---
Progress Note: A&P Assessment and Plan (1) Atrial fibrillation with rapid ventricular response: Code(s): I48.91 - Unspecified atrial fibrillation Status: Acute Assessment and Plan: [id number] 1. Rate control as Amiodarone is on hold due to elevated LFT. LFT could be elevated from Amiodarone or passive congestion or other. Not on aspirin or anticoagulation due to GI bleed/anemia. Rate is OK. May add Digoxin if needed for rate control. (2) CHF (congestive heart failure): Qualifiers: Heart failure chronicity: acute on chronic Heart failure type: diastolic Qualified Code(s): I50.33 - Acute on chronic diastolic (congestive) heart failure Code(s): I50.9 - Heart failure, unspecified Status: Acute Assessment and Plan: Echo shows normal EF, diastolic dysfunction, mod posterior MVP, mod MR, mod-severe TR, RVSP 42 mmHg. Continue Lasix for edema. Monitor electrolytes. (3) Profound anemia: Code(s): D64.9 - Anemia, unspecified Status: Acute Assessment and Plan: Previously, patient did not want anything done including endoscopies. He is going for endoscopies today. Subjective Date/time seen: 01/15/21 08:34 Denies chest pain or sob. Exam Const: General: cooperative, healthy appearing and comfortable Resp: Auscultation: clear to auscultation bilaterally, no crackles, no rales, no rhonchi and no wheezes Cardio: Jugular venous distension: no JVD Rate: tachycardic Rhythm: abnormal rhythm Heart sounds: no murmurs Peripheral pulses: dorsalis pedis present GI: GI Palp: No abdominal tenderness and Yes Soft to palpation Neuro: General: oriented to person, oriented to place and oriented to time Extrem: Right lower extremity: edema Left lower extremity: edema Other: Mod edema of both legs Objective Data Vital Signs Vital Signs: Vital Signs - 24 hr 01/14/21 10:00 01/14/21 12:00 01/14/21 12:32 Temperature 98.1 F Pulse Rate 105 H 97 97 Respiratory Rate 17 Blood Pressure 97/73 L Pulse Oximetry 95 01/14/21 14:00 01/14/21 16:00 01/14/21 18:00 Temperature 97.8 F Pulse Rate 98 102 H 103 H Respiratory Rate 18 Blood Pressure 125/50 L Pulse Oximetry 94 01/14/21 18:11 01/14/21 18:12 01/14/21 20:00 Temperature 97.7 F Pulse Rate 100 100 101 H Respiratory Rate 20 Blood Pressure 117/80 103/70 Pulse Oximetry 96 01/14/21 21:45 01/14/21 23:09 01/14/21 23:27 Temperature 97.8 F Pulse Rate 94 97 Respiratory Rate 20 Blood Pressure 103/64 Pulse Oximetry 96 96 01/14/21 23:30 01/14/21 23:38 01/15/21 02:00 Temperature Pulse Rate 98 98 86 Respiratory Rate 20 Blood Pressure Pulse Oximetry 96 01/15/21 04:00 01/15/21 05:21 01/15/21 05:46 Temperature 97.7 F Pulse Rate 105 H 107 H 87 Respiratory Rate 18 Blood Pressure 99/68 L Pulse Oximetry 98 01/15/21 07:44 Temperature 97.9 F Pulse Rate 101 H Respiratory Rate 19 Blood Pressure 102/63 Pulse Oximetry 95 Intake/Output Intake/Output: Intake & Output 01/12/21 01/13/21 01/14/21 01/15/21 23:59 23:59 23:59 23:59 Intake Total 1030 740 50 Output Total 225 2350 Balance 805 -1610 50 Meds/Results Medications: Active Medications Generic Name Dose Route Start Last Admin Trade Name Freq PRN Reason Stop Dose Admin Furosemide 20 mg 01/13/21 20:50 01/15/21 08:05 Furosemide Inj 40 Mg/4 Ml Vial IV PUSH 20 mg BID EMMA Administration Metoprolol Tartrate 25 mg 01/13/21 20:50 01/15/21 05:21 Metoprolol Tartrate 25 Mg Tablet PO 25 mg Q6HR EMMA Administration Pantoprazole Sodium 40 mg 01/13/21 21:00 01/15/21 08:05 Pantoprazole Sodium Iv 40 Mg Vial IV PUSH 40 mg Q12HR EMMA Administration Radiology Results: ITS Impressions Chest X-Ray 01/13/21 14:30 IMPRESSION: 1. Patchy opacities in the right mid to lower and left lower lung zones suspicious for pneumonia. 2. Small left pleural effusion. 3. Elevation of the l
[2021-01-15 08:39] LABS: Anion Gap 8 mmol/L (8-16); Blood Urea Nitrogen 44 mg/dL (9-20); Calcium 7.4 mg/dL (8.4-10.2); Carbon Dioxide 26 mmol/L (22-30); Chloride 94 mmol/L (98-107); Estimated CRCL calculation 69 ml/min; Estimated Glomerular Filt Rate > 60; Glucose 111 mg/dL (75-110); Potassium 3.3 mmol/L (3.4-5.0); Sodium 128 mmol/L (137-145)
[2021-01-15 08:41] LABS: Alanine Aminotransferase 351 U/L (4-50); Albumin Level 3.3 g/dL (3.5-5.1); Alkaline Phosphatase 212 U/L (38-126); Aspartate Amino Transferase 283 U/L (17-59); Bilirubin,Total 1.1 mg/dL (0.2-1.3)
[2021-01-15 08:45] LABS: Magnesium 2.1 mg/dL (1.6-2.3)
[2021-01-15] MEDS: LACTATED RINGERS 1,000 ML 150 ML IV CONT (10:41)
--- NOTE | 2021-01-15 11:29 | WPDANESEPPF ---
Anes - Initial Pre Proc Eval Procedure: Operation Date: 01/15/21 11:45 Proposed Procedures p Esophagogastroduodenoscopy & Colonoscopy - Tyler Guerra MD Date/Time: 01/15/21 11:29 Surgeon: Rasheed Nur MD Pre Op Diagnosis: afib with rvr, anemia Patient Data Age: 65 Gender: M Height: 5 ft 7 in Weight: 67 kg Last Vital Signs Temp 97.7 F 01/15/21 10:43 Pulse 93 01/15/21 10:43 Resp 20 01/15/21 10:43 BP 87/60 L 01/15/21 10:43 Pulse Ox 90 01/15/21 10:43 Allergies Allergy/AdvReac Type Severity Reaction Status Date / Time No Known Allergies Allergy Verified 01/15/21 10:39 Home Medications Medication Instructions Recorded Confirmed Type amiodarone 200 mg tablet 200 mg PO BID #60 tablet 12/11/20 01/13/21 Rx furosemide 20 mg tablet 20 mg PO QAM #30 tablet 01/01/21 01/13/21 Rx lisinopril-hydrochlorothiazide 1 tablet PO DAILY 01/13/21 01/13/21 History metoprolol tartrate 25 mg PO Q6H 01/13/21 01/13/21 History Laboratory Tests 01/13/21 01/15/21 01/15/21 21:42 08:04 08:04 WBC 16.1 K/mm3 H K/mm3 (4.5-10.0) RBC 4.11 M/mm3 L M/mm3 (4.6-6.20) Hgb 8.4 g/dL L g/dL (14.0-18.0) Hct 28.3 % L % (42.0-52.0) MCV 68.9 fl L fl (80-100) MCH 20.4 pg L pg (26-34) MCHC 29.7 g/dl L g/dl (32-36) RDW 22.2 % H % (11.5-14.5) Plt Count 410 k/mm3 H k/mm3 (150-375) MPV 9.9 fl fl (7.4-10.4) Sodium 128 mmol/L L mmol/L (137-145) Potassium 3.3 mmol/L L mmol/L (3.4-5.0) Chloride 94 mmol/L L mmol/L (98-107) Carbon Dioxide 26 mmol/L mmol/L (22-30) Anion Gap 8 mmol/L mmol/L (8-16) BUN 44 mg/dL H mg/dL (9-20) Creatinine 0.90 mg/dL mg/dL (0.7-1.3) Estim Creat Clear Calc 69 ml/min ml/min Estimated GFR > 60 (59 - ) Glucose 111 mg/dL H mg/dL (75-110) Calcium 7.4 mg/dL L mg/dL (8.4-10.2) Magnesium Total Bilirubin Direct Bilirubin AST ALT Alkaline Phosphatase Total Protein Albumin Hepatitis A IgM Ab Negative (Negative) Hep Bs Antigen Negative (Negative) Hep B Core IgM Ab Negative (Negative) Hepatitis C Ab Screen Negative (Negative) 01/15/21 01/15/21 08:04 08:04 WBC RBC Hgb Hct MCV MCH MCHC RDW Plt Count MPV Sodium Potassium Chloride Carbon Dioxide Anion Gap BUN Creatinine Estim Creat Clear Calc Estimated GFR Glucose Calcium Magnesium 2.1 mg/dL mg/dL (1.6-2.3) Total Bilirubin 1.1 mg/dL mg/dL (0.2-1.3) Direct Bilirubin 0.0 mg/dL mg/dL (0-0.3) AST 283 U/L H U/L (17-59) ALT 351 U/L H U/L (4-50) Alkaline Phosphatase 212 U/L H U/L (38-126) Total Protein 6.0 g/dL L g/dL (6.3-8.2) Albumin 3.3 g/dL L g/dL (3.5-5.1) Hepatitis A IgM Ab Hep Bs Antigen Hep B Core IgM Ab Hepatitis C Ab Screen Patient hx anesthesia problems: none Family hx anesthesia problems: none [facility] Past Medical History Medical History (Updated 01/14/21 @ 14:13 by Tyler Guerra MD) Acute on chronic blood loss anemia Atrial fibrillation Congestive heart failure Echocardiogram in November 2019 showed ejection fraction 55 to 60% with mild LVH and severe left atrial enlargement. Dyslipidemia Essential hypertension Iron deficiency anemia Iron studies in November 2020 as follows: Total iron < 10, % saturation 1.10, TIBC 456, ferritin 3. Leg edema Mitral valve prolapse Moderate posterior mitral valve prolapse on echocardiogram dated 03
--- NOTE | 2021-01-15 12:58 | PDONCCN ---
HPI - Date of Consult Date/Time: 01/15/21 12:58 Requesting Physician: Rasheed Nur MD Primary Care Provider: Prosper Brannon MD - Consult Narrative Reason for consult: Colon mass Narrative: Hi Bonner is a 65 year old male with history of congestive heart failure, mitral valve prolapse and atrial fibrillation came into the ER with generalized weakness. According the patient he has been eating poorly and lost 5 lb weight recently. He was had being intermittent blood in the stool. He denies any diarrhea and constipation. He denies any abdominal pain. He was diagnosed with atrial fibrillation but anticoagulation was not started due to iron deficiency anemia and hemoccult stool was positive. Labs showed hemoglobin of 6.5. CT chest showed patchy airspace opacity in the right lung consistent with pneumonia along with small pleural effusion. Colonoscopy was performed on January 15 at that showed large fungating malignant-appearing mass 5 cm from the anus extending up to the 10 cm. EGD showed hiatal hernia and gastritis. Review of Systems - Neurologic Reports hearing normal, Reports weakness, Denies confusion, Denies syncope, Denies headache(s) [facility] Medical History: Medical History (Last Updated 01/14/21 @ 14:13 by Tyler Guerra MD) Acute on chronic blood loss anemia Atrial fibrillation Congestive heart failure Echocardiogram in November 2019 showed ejection fraction 55 to 60% with mild LVH and severe left atrial enlargement. Dyslipidemia Essential hypertension Iron deficiency anemia Iron studies in November 2020 as follows: Total iron < 10, % saturation 1.10, TIBC 456, ferritin 3. Leg edema Mitral valve prolapse Moderate posterior mitral valve prolapse on echocardiogram dated 12/09/2019. Occult blood in stools Surgical History: Surgical History (Last Updated 01/13/21 @ 20:29 by Thalia Hopkins PA-C) No history of previous surgery Family History: Family History (Last Reviewed 01/13/21 @ 20:29 by Thalia Hopkins PA-C) Mother Pleurisy - Social History Social History: Social History (Last Updated 01/13/21 @ 20:29 by Thalia Hopkins PA-C) Gender Identity: Gender identity (if verbalized by the patient): Male Alcohol Use: Alcohol intake: current Drinks per week: 7 Substance Use: Substance use: never Others: Spiritual care concerns: No Smoking Status: Smoking status: Never smoker Meds Home Medications Medication Instructions Recorded Confirmed Type amiodarone 200 mg tablet 200 mg PO BID #60 tablet 12/11/20 01/13/21 Rx furosemide 20 mg tablet 20 mg PO QAM #30 tablet 01/01/21 01/13/21 Rx lisinopril-hydrochlorothiazide 1 tablet PO DAILY 01/13/21 01/13/21 History metoprolol tartrate 25 mg PO Q6H 01/13/21 01/13/21 History Allergies Allergy/AdvReac Type Severity Reaction Status Date / Time No Known Allergies Allergy Verified 01/15/21 10:39 Results - Labs CBC & Chem 7: 01/15/21 08:04 01/15/21 08:04 Labs: Short CBC 01/15/21 Range/Units 08:04 WBC 16.1 H (4.5-10.0) K/mm3 Hgb 8.4 L (14.0-18.0) g/dL Hct 28.3 L (42.0-52.0) % Plt Count 410 H (150-375) k/mm3 BMP 01/15/21 08:04 Sodium 128 L Potassium 3.3 L Chloride 94 L Carbon Dioxide 26 BUN 44 H Creatinine 0.90 Glucose 111 H Calcium 7.4 L Liver Function 01/15/21 Range/Units 08:04 Total Bilirubin 1.1 (0.2-1.3) mg/dL Direct Bilirubin 0.0 (0-0.3) mg/dL AST 283 H (17-59) U/L ALT 351 H (4-50) U/L Alkaline Phosphatase 212 H (38-126) U/L Albumin 3.3 L (3.5-5.1) g/dL Assessment and Plan - Additional Plan Rectosigmoid mass. Patient had colonoscopy done on January 15 that showed large fungating infiltrative malignant-appearing ulcerated mass 5 cm from the anus extending up to the 10 cm. Pathology report is pending. Patient came into the hospital with generalized weakness and intermittent shade
--- NOTE | 2021-01-15 14:04 | PM.IMPN ---
Progress Note: A&P Assessment and Plan (1) Acute exacerbation of congestive heart failure: Code(s): I50.9 - Heart failure, unspecified Status: Acute Assessment and Plan: Continue diuresis. (2) Atrial fibrillation with rapid ventricular response: Code(s): I48.91 - Unspecified atrial fibrillation Status: Acute Assessment and Plan: Patient was started on amiodarone last month and metoprolol (3) Profound anemia: Code(s): D64.9 - Anemia, unspecified Status: Acute Assessment and Plan: Hb is 8. (4) Leukocytosis: Code(s): D72.829 - Elevated white blood cell count, unspecified Status: Acute Assessment and Plan: Chest x-ray shows opacities in the mid and lower lung zone suspicious for pneumonia. (5) Elevated LFTs: Code(s): R79.89 - Other specified abnormal findings of blood chemistry Status: Acute Assessment and Plan: The patient is not having any abdominal discomfort (6) Hyponatremia: Code(s): E87.1 - Hypo-osmolality and hyponatremia Status: Acute Assessment and Plan: Most likely secondary to volume overload, sodium is 128. (7) Essential hypertension: Code(s): I10 - Essential (primary) hypertension Status: Acute Assessment and Plan: Blood pressurescontinue to monitor Subjective Date/time seen: 01/15/21 14:04 Interval history: 65 year old male with history of congestive heart failure, mitral valve prolapse and atrial fibrillation came into the ER with generalized weakness. Pt was found to have colon cancer. Pt looks very tired and fatigued, his legs are swollen. Review of Systems Review of Systems: All systems reviewed & are unremarkable except as noted in HPI and below Exam Narrative: Exam Narrative: Patient is laying in bed Const: General: comfortable, no acute distress, alert, awake, ill appearing chronically and tired appearing Nutritional Appearance: thin Orientation/consciousness: patient oriented x3 HENMT: Head: normal to inspection, normocephalic and atraumatic Ears: hearing grossly normal bilaterally Face and sinus: normal facial exam Eyes: General: appearance normal, both eyes and all related structures Pupils: Equal, round and reactive pupils present EOM: EOMs intact bilaterally Neck: Neck: full ROM, no lymphadenopathy and no JVD Thyroid: thyroid normal Lymphatic: no lymphadenopathy noted Resp: Effort & Inspection: normal respiratory effort and able to speak in complete sentences Auscultation: clear to auscultation bilaterally Cardio: Jugular venous distension: no JVD Rate: regular rate Rhythm: regular rhythm Heart sounds: S1 normal heart sound present and S2 normal heart sound present : General: Yes deferred Skin: Rashes: no rashes Wounds: no wounds Neuro: General: patient oriented x3, CN's II-XI intact bilaterally and Unable to assess gait Cranial nerves: Yes CN's II-XII intact bilaterally and Yes Equal, round and reactive pupils present Cognition (Neuro): normal cognition Speech: normal speech Gait exam (Neuro): Unable to assess gait Motor exam (neuro): 5/5 motor strength present throughout Extrem: General: edema bilateral (Lower extremities) Objective Data Vital Signs Vital Signs: Vital Signs - 24 hr 01/14/21 16:00 01/14/21 18:00 01/14/21 18:11 Temperature 36.6 C Pulse Rate 102 H 103 H 100 Respiratory Rate 18 Blood Pressure 125/50 L 117/80 Pulse Oximetry 94 01/14/21 18:12 01/14/21 20:00 01/14/21 21:45 Temperature 36.5 C Pulse Rate 100 101 H 94 Respiratory Rate 20 Blood Pressure 103/70 Pulse Oximetry 96 01/14/21 23:09 01/14/21 23:27 01/14/21 23:30 Temperature 36.6 C Pulse Rate 97 98 Respiratory Rate 20 Blood Pressure 103/64 Pulse Oximetry 96 96 01/14/21 23:38 01/15/21 02:00 01/15/21 04:00 Temperature 36.5 C Pulse Rate 98 86 105 H Respiratory Rate 20 18 Blood Pr
--- NOTE | 2021-01-15 15:11 | PM.CNGS ---
Assessment and Plan Assessment and plan (1) Colonic mass: Code(s): K63.89 - Other specified diseases of intestine Status: Acute Assessment and Plan: This is the main reason for our consultation today. The patient was found to have a large protruding fungating, infiltrative, malignant-appearing ulcerated mass that was semi circumferential in the rectosigmoid. The mass appeared at the depth of 5 cm from the anus and extended up to 10 cm. They were able to transverse the mass endoscopically. Biopsies were taken, and are pending. The patient does not appear to have a high-grade obstruction from the mass. CT scan of the abdomen and pelvis ordered today. CEA ordered for tomorrow morning. I discussed the colonoscopy findings with the patient in detail. He is adamant about refusing surgery, even though I told him that he would need further work-up prior to planning for any surgery. I had a thorough discussion regarding possible future complications of the colon mass, such as a bowel obstruction, perforation, further episodes of profound anemia, increasing weakness, etc. that could ultimately result in without treatment. He understands this and continues to refuse surgery. He is oriented and appropriate in conversation regarding his ability to make this decision. I also asked if I could call his family and have a conversation with them regarding these findings and he is refusing this as well. That being said, I will discuss his case with Dr. Hernandez and that he is refusing any surgery. Thank you for allowing us to see the patient in consultation. (2) Acute on chronic blood loss anemia: Code(s): D62 - Acute posthemorrhagic anemia Status: Acute Assessment and Plan: Received 2 units of packed red blood cells on 01/13/2021. Hemoglobin stable at 8.4 today. See plan above. Although patient is refusing surgical intervention, he states that he is okay with further palliative treatment of his anemia if needed in the future. He is specifically just refusing surgery. (3) Atrial fibrillation with rapid ventricular response: Code(s): I48.91 - Unspecified atrial fibrillation Status: Acute Assessment and Plan: Not on any anticoagulation or aspirin due to a GI bleed and anemia. Diagnosed with AFib in November of 2020. Presented with AFib with RVR. Rate controlled on my exam. (4) CHF (congestive heart failure): Qualifiers: Heart failure chronicity: acute on chronic Heart failure type: diastolic Qualified Code(s): I50.33 - Acute on chronic diastolic (congestive) heart failure Code(s): I50.9 - Heart failure, unspecified Status: Acute Assessment and Plan: Echocardiogram shows normal EF, diastolic dysfunction, and valvular disease. Patient being diuresed. Cardiology following. (5) MVP (mitral valve prolapse): Code(s): I34.1 - Nonrheumatic mitral (valve) prolapse Status: Acute (6) Essential hypertension: Code(s): I10 - Essential (primary) hypertension Status: Acute Assessment and Plan: Management per primary team. (7) Elevated LFTs: Code(s): R79.89 - Other specified abnormal findings of blood chemistry Status: Acute Assessment and Plan: Amiodarone on hold for elevated LFTs. Hepatitis panel negative. Abdominal ultrasound suggested that the liver is normal without focal lesion or surface nodularity. GI following. (8) Hyponatremia: Code(s): E87.1 - Hypo-osmolality and hyponatremia Status: Acute Additional Plan I have discussed the patient's case and plan of care with Dr. Hernandez. History of Present Illness Consult details Consult date: 01/16/21 Reason for consult: other (Rectosigmoid mass found on colonoscopy) Requesting physician: Tyler Guerra MD Narrative: This is a 65-year-old male with diastolic congestive heart failure, mitral valve prolapse, and atrial fibrillation who presented
--- NOTE | 2021-01-15 16:06 | PC.NURSE ---
Nurse at bedside assessing patient. Patient stated that he did not want family to know any health information about his care or results of EDG and colonoscopy. At this time patient alert and oriented and able to make decisions appropriately. Will continue to monitor.
[2021-01-15] MEDS: FERROUS SULFATE 324 MG TABLET PO (18:17)
[2021-01-15] MEDS: POTASSIUM CHLORIDE 20 MEQ PACKET (FOR LIQUID) 40 MEQ PO (18:18)
[2021-01-16] VITALS (13 sets, daily range): BP systolic 93–110; BP diastolic 60–76; PULSE 51–104; RESP 18–21; TEMP 36–36.6; O2SAT 93–99
[2021-01-16] MEDS: METOPROLOL TARTRATE 25 MG TABLET PO ×3 (05:20→17:15)
[2021-01-16 05:29] LABS: Hematocrit 28.7 % (42.0-52.0); Hemoglobin 8.4 g/dL (14.0-18.0); Mean Corpuscular HGB Conc 29.3 g/dl (32-36); Mean Corpuscular Hemoglobin 20.1 pg (26-34); Mean Corpuscular Volume 68.7 fl (80-100); Platelet Count Result 419 k/mm3 (150-375); Red Blood Count 4.18 M/mm3 (4.6-6.20); Red Cell Distribution Width 22.8 % (11.5-14.5); White Blood Count 17.1 K/mm3 (4.5-10.0)
[2021-01-16 05:50] LABS: Alanine Aminotransferase 353 U/L (4-50); Albumin Level 3.3 g/dL (3.5-5.1); Alkaline Phosphatase 219 U/L (38-126); Anion Gap 7 mmol/L (8-16); Aspartate Amino Transferase 235 U/L (17-59); Bilirubin,Total 0.9 mg/dL (0.2-1.3); Blood Urea Nitrogen 49 mg/dL (9-20); Calcium 7.2 mg/dL (8.4-10.2); Carbon Dioxide 27 mmol/L (22-30); Chloride 93 mmol/L (98-107); Estimated CRCL calculation 62 ml/min; Estimated Glomerular Filt Rate > 60; Glucose 102 mg/dL (75-110); Magnesium 2.2 mg/dL (1.6-2.3); Sodium 127 mmol/L (137-145)
[2021-01-16 06:18] LABS: Carcinoembryonic Antigen 2.7 ng/mL (0.0-3.0)
--- NOTE | 2021-01-16 07:55 | PM.PNCARD ---
Progress Note: A&P Assessment and Plan (1) Atrial fibrillation with rapid ventricular response: Code(s): I48.91 - Unspecified atrial fibrillation Status: Acute Assessment and Plan: [id number] 1. Rate control as Amiodarone is on hold due to elevated LFT. LFT could be elevated from Amiodarone or passive congestion or other. Not on aspirin or anticoagulation due to GI bleed/anemia. Rate is OK. May add Digoxin if needed for rate control. (2) CHF (congestive heart failure): Qualifiers: Heart failure chronicity: acute on chronic Heart failure type: diastolic Qualified Code(s): I50.33 - Acute on chronic diastolic (congestive) heart failure Code(s): I50.9 - Heart failure, unspecified Status: Acute Assessment and Plan: Echo shows normal EF, diastolic dysfunction, mod posterior MVP, mod MR, mod-severe TR, RVSP 42 mmHg. Continue Lasix for edema which is improving. Monitor electrolytes. (3) Profound anemia: Code(s): D64.9 - Anemia, unspecified Status: Acute Assessment and Plan: Previously, patient did not want anything done including endoscopies. Had endoscopy on 01/15/21 showing large rectosigmoid mass. He is refusing surgery. Subjective Date/time seen: 01/16/21 07:55 Reports no chest pain or sob. Swelling of legs improving. Exam Const: General: cooperative, healthy appearing and comfortable Resp: Auscultation: clear to auscultation bilaterally, no crackles, no rales, no rhonchi and no wheezes Cardio: Jugular venous distension: no JVD Rate: tachycardic Rhythm: abnormal rhythm Heart sounds: no murmurs Peripheral pulses: dorsalis pedis present GI: GI Palp: No abdominal tenderness and Yes Soft to palpation Neuro: General: oriented to person, oriented to place and oriented to time Extrem: Right lower extremity: edema Left lower extremity: edema Other: Mild edema of both legs Objective Data Vital Signs Vital Signs: Vital Signs - 24 hr 01/15/21 08:00 01/15/21 10:43 01/15/21 12:13 Temperature 97.7 F Pulse Rate 107 H 93 105 H Respiratory Rate 20 20 Blood Pressure 87/60 L 91/64 L Pulse Oximetry 90 85 L 01/15/21 12:23 01/15/21 12:33 01/15/21 13:06 Temperature Pulse Rate 107 H 108 H 110 H Respiratory Rate 22 H 20 Blood Pressure 101/74 113/68 Pulse Oximetry 97 97 01/15/21 14:00 01/15/21 15:06 01/15/21 15:43 Temperature 97.4 F L Pulse Rate 97 94 Respiratory Rate 17 Blood Pressure 97/60 L Pulse Oximetry 94 98 01/15/21 16:00 01/15/21 18:00 01/15/21 18:18 Temperature Pulse Rate 96 97 88 Respiratory Rate Blood Pressure Pulse Oximetry 01/15/21 20:00 01/15/21 22:00 01/15/21 23:06 Temperature 97.8 F Pulse Rate 98 92 98 Respiratory Rate 18 Blood Pressure 95/69 L Pulse Oximetry 96 01/15/21 23:34 01/15/21 23:35 01/16/21 02:00 Temperature 97.9 F Pulse Rate 96 96 100 Respiratory Rate 18 20 Blood Pressure 92/69 L Pulse Oximetry 96 93 01/16/21 04:00 01/16/21 05:20 01/16/21 05:42 Temperature 97.9 F Pulse Rate 98 96 96 Respiratory Rate 18 Blood Pressure 98/70 L Pulse Oximetry 99 Intake/Output Intake/Output: Intake & Output 01/13/21 01/14/21 01/15/21 01/16/21 23:59 23:59 23:59 23:59 Intake Total 4562 860 9400 100 Output Total 225 2350 Balance 805 -1610 1130 100 Meds/Results Medications: Active Medications Generic Name Dose Route Start Last Admin Trade Name Bradley PRN Reason Stop Dose Admin Ferrous Sulfate 324 mg 01/15/21 17:00 01/15/21 18:17 Ferrous Sulfate 324 Mg Tablet PO 324 mg BIDWM EMMA Administration Furosemide 20 mg 01/13/21 20:50 01/15/21 18:16 Furosemide Inj 40 Mg/4 Ml Vial IV PUSH Not Given BID EMMA Metoprolol Tartrate 25 mg 01/13/21 20:50 01/16/21 05:20 Metoprolol Tartrate 25 Mg Tablet PO 25 mg Q6HR EMMA Administration Pantoprazole Sodium 40 mg 01/16/21 09:00 Pantoprazole 40 Mg Tablet PO QAM EMMA Po
[2021-01-16] MEDS: FUROSEMIDE INJ 40 MG/4 ML VIAL 20 MG IV PUSH ×2 (09:05→17:15)
[2021-01-16] MEDS: POTASSIUM CHLORIDE 20 MEQ PACKET (FOR LIQUID) 40 MEQ PO ×2 (09:05→17:15)
[2021-01-16] MEDS: PANTOPRAZOLE 40 MG TABLET PO (09:05)
[2021-01-16] MEDS: FERROUS SULFATE 324 MG TABLET PO ×2 (09:05→17:15)
--- NOTE | 2021-01-16 09:24 | WPDANESPN ---
Anes - Prog Note Post-Op Date/Time: 01/16/21 09:24 Cardiovascular status: normal Respiratory status: normal Airway patency: baseline Mental status: baseline Post-Op hydration status: normal Vital Signs: Last Vital Signs Temp 36.0 C L 01/16/21 08:00 Pulse 91 01/16/21 08:00 Resp 18 01/16/21 08:00 BP 94/76 L 01/16/21 08:00 Pulse Ox 99 01/16/21 09:08 Pain Score (VAS): no c/o pain I/O: Intake & Output 01/15/21 01/16/21 01/16/21 23:59 07:59 15:59 Intake Total 740 100 220 Balance 740 100 220 Laboratory Tests 01/16/21 04:34 01/16/21 04:34 01/16/21 01/16/21 04:34 04:34 WBC 17.1 H RBC 4.18 L Hgb 8.4 L Hct 28.7 L MCV 68.7 L MCH 20.1 L MCHC 29.3 L RDW 22.8 H Plt Count 419 H MPV 10.0 Sodium 127 L Potassium 4.0 Chloride 93 L Carbon Dioxide 27 Anion Gap 7 L BUN 49 H Creatinine 1.00 Estim Creat Clear Calc 62 Estimated GFR > 60 Glucose 102 Calcium 7.2 L Magnesium 2.2 Total Bilirubin 0.9 Direct Bilirubin 0.0 AST 235 H ALT 353 H Alkaline Phosphatase 219 H Total Protein 6.0 L Albumin 3.3 L Carcinoembryonic Ag 2.7 Microbiology 01/13/21 18:30 Blood Blood Culture - Preliminary 01/13/21 18:30 Blood Blood Culture - Preliminary Post-procedural complaints: none Patient Feedback: Patient satisfied with anesthetic care.
--- NOTE | 2021-01-16 09:45 | WPDANESPN ---
Anes - Prog Note Post-Op Date/Time: 01/16/21 09:45 Cardiovascular status: normal Respiratory status: normal Airway patency: baseline Mental status: baseline Post-Op hydration status: normal Vital Signs: Last Vital Signs Temp 36.0 C L 01/16/21 08:00 Pulse 91 01/16/21 08:00 Resp 18 01/16/21 08:00 BP 94/76 L 01/16/21 08:00 Pulse Ox 99 01/16/21 09:08 Pain Score (VAS): 0 I/O: Intake & Output 01/15/21 01/16/21 01/16/21 23:59 07:59 15:59 Intake Total 740 100 220 Balance 740 100 220 Laboratory Tests 01/16/21 04:34 01/16/21 04:34 01/16/21 01/16/21 04:34 04:34 WBC 17.1 H RBC 4.18 L Hgb 8.4 L Hct 28.7 L MCV 68.7 L MCH 20.1 L MCHC 29.3 L RDW 22.8 H Plt Count 419 H MPV 10.0 Sodium 127 L Potassium 4.0 Chloride 93 L Carbon Dioxide 27 Anion Gap 7 L BUN 49 H Creatinine 1.00 Estim Creat Clear Calc 62 Estimated GFR > 60 Glucose 102 Calcium 7.2 L Magnesium 2.2 Total Bilirubin 0.9 Direct Bilirubin 0.0 AST 235 H ALT 353 H Alkaline Phosphatase 219 H Total Protein 6.0 L Albumin 3.3 L Carcinoembryonic Ag 2.7 Microbiology 01/13/21 18:30 Blood Blood Culture - Preliminary 01/13/21 18:30 Blood Blood Culture - Preliminary Post-procedural complaints: none Patient Feedback: Patient satisfied with anesthetic care.
--- NOTE | 2021-01-16 13:19 | PM.IMPN ---
Progress Note: A&P Assessment and Plan (1) Acute exacerbation of congestive heart failure: Code(s): I50.9 - Heart failure, unspecified Status: Acute Assessment and Plan: Continue diuresis. (2) Atrial fibrillation with rapid ventricular response: Code(s): I48.91 - Unspecified atrial fibrillation Status: Acute Assessment and Plan: Patient was started on amiodarone last month and metoprolol (3) Profound anemia: Code(s): D64.9 - Anemia, unspecified Status: Acute Assessment and Plan: Hb is 8. (4) Leukocytosis: Code(s): D72.829 - Elevated white blood cell count, unspecified Status: Acute Assessment and Plan: Chest x-ray shows opacities in the mid and lower lung zone suspicious for pneumonia. (5) Elevated LFTs: Code(s): R79.89 - Other specified abnormal findings of blood chemistry Status: Acute Assessment and Plan: The patient is not having any abdominal discomfort (6) Hyponatremia: Code(s): E87.1 - Hypo-osmolality and hyponatremia Status: Acute Assessment and Plan: Most likely secondary to volume overload, sodium is 128. (7) Essential hypertension: Code(s): I10 - Essential (primary) hypertension Status: Acute Assessment and Plan: Blood pressurescontinue to monitor (8) Colonic mass: Code(s): K63.89 - Other specified diseases of intestine Status: Acute Assessment and Plan: Colonoscopy was performed on January 15 at that showed large fungating malignant-appearing mass 5 cm from the anus extending up to the 10 cm. Pt is refusing active treatment, i will discuss with his sister regarding his home care options. Continue nutrition and PT now. Subjective Date/time seen: 01/16/21 13:19 Interval history: 65 year old male with history of congestive heart failure, mitral valve prolapse and atrial fibrillation came into the ER with generalized weakness. Pt was found- large fungating malignant-appearing extending up to the 10 cm. Review of Systems Review of Systems: All systems reviewed & are unremarkable except as noted in HPI and below Exam Narrative: Exam Narrative: Patient is laying in bed Resp: Effort & Inspection: normal respiratory effort and able to speak in complete sentences Auscultation: clear to auscultation bilaterally Cardio: Jugular venous distension: no JVD Rate: regular rate Rhythm: regular rhythm Heart sounds: S1 normal heart sound present and S2 normal heart sound present : General: Yes deferred Skin: Rashes: no rashes Wounds: no wounds Neuro: General: patient oriented x3, CN's II-XI intact bilaterally and Unable to assess gait Cranial nerves: Yes CN's II-XII intact bilaterally and Yes Equal, round and reactive pupils present Cognition (Neuro): normal cognition Speech: normal speech Gait exam (Neuro): Unable to assess gait Motor exam (neuro): 5/5 motor strength present throughout Extrem: General: edema bilateral (Lower extremities) Objective Data Vital Signs Vital Signs: Vital Signs - 24 hr 01/15/21 14:00 01/15/21 15:06 01/15/21 15:43 Temperature 36.3 C L Pulse Rate 97 94 Respiratory Rate 17 Blood Pressure 97/60 L Pulse Oximetry 94 98 01/15/21 16:00 01/15/21 18:00 01/15/21 18:18 Temperature Pulse Rate 96 97 88 Respiratory Rate Blood Pressure Pulse Oximetry 01/15/21 20:00 01/15/21 22:00 01/15/21 23:06 Temperature 36.6 C Pulse Rate 98 92 98 Respiratory Rate 18 Blood Pressure 95/69 L Pulse Oximetry 96 01/15/21 23:34 01/15/21 23:35 01/16/21 02:00 Temperature 36.6 C Pulse Rate 96 96 100 Respiratory Rate 18 20 Blood Pressure 92/69 L Pulse Oximetry 96 93 01/16/21 04:00 01/16/21 05:20 01/16/21 05:42 Temperature 36.6 C Pulse Rate 98 96 96 Respiratory Rate 18 Blood Pressure 98/70 L Pulse Oximetry 99 01/16/21 08:00 01/16/21 09:08 Temper
--- NOTE | 2021-01-16 16:09 | WPDGIPROGNO ---
Progress Note: A&P Assessment and Plan (1) Colonic mass: Code(s): K63.89 - Other specified diseases of intestine Status: Acute Assessment and Plan: found yesterday by colonoscopy, large rectosigmoid mass with bx pending, CT scan was done (reviewed), pending CEA level patient says that he won't like to have any sort of treatment/procedure for cancer, I told him that without treatment he will become even more symptomatic with recurrent anemia, colonic obstruction, etc. He understood but still is not interested. Please call with questions (2) Acute on chronic blood loss anemia: Code(s): D62 - Acute posthemorrhagic anemia Status: Acute Assessment and Plan: from large colon mass (3) Occult blood in stools: Code(s): R19.5 - Other fecal abnormalities Status: Acute Assessment and Plan: new diagnosis of colon cancer (4) Acute exacerbation of congestive heart failure: Code(s): I50.9 - Heart failure, unspecified Status: Acute (5) Afib: Qualifiers: Atrial fibrillation type: unspecified Qualified Code(s): I48.91 - Unspecified atrial fibrillation Code(s): I48.91 - Unspecified atrial fibrillation Status: Acute Assessment and Plan: cardiology on board no blood thinners in setting on blood in stools due to large colonic mass Subjective Date/time seen: 01/16/21 16:09 Interval history: he says that feels weak, no new events Review of Systems Review of Systems: All systems reviewed & are unremarkable except as noted in HPI and below Exam Const: General: comfortable and no acute distress HENMT: General nose exam: Normal nares present Eyes: General: appearance normal, both eyes and all related structures Neck: Neck: supple Resp: Auscultation: clear to auscultation bilaterally Cardio: Rhythm: abnormal rhythm irregularly irregular GI: GI Palp: Yes Soft to palpation and No Guarding due to palpation present (GI) Auscultation: normal bowel sounds Skin: General skin exam: no erythema Extrem: General: pedal edema bilaterally Psych: Mental Status: mental status grossly normal Objective Data Vital Signs Vital Signs: Vital Signs - 24 hr 01/15/21 18:00 01/15/21 18:18 01/15/21 20:00 Temperature 97.8 F Pulse Rate 97 88 98 Respiratory Rate 18 Blood Pressure 95/69 L Pulse Oximetry 96 04/20/21 22:00 01/15/21 23:06 01/15/21 23:34 Temperature Pulse Rate 92 98 96 Respiratory Rate 18 Blood Pressure Pulse Oximetry 96 01/15/21 23:35 01/16/21 02:00 01/16/21 04:00 Temperature 97.9 F 97.9 F Pulse Rate 96 100 98 Respiratory Rate 20 18 Blood Pressure 92/69 L 98/70 L Pulse Oximetry 93 99 01/16/21 05:20 01/16/21 05:42 01/16/21 08:00 Temperature 96.8 F L Pulse Rate 96 96 96 Respiratory Rate 18 Blood Pressure 94/76 L Pulse Oximetry 94 01/16/21 09:08 01/16/21 13:21 Temperature Pulse Rate 93 Respiratory Rate Blood Pressure Pulse Oximetry 99 Intake/Output Intake/Output: Intake & Output 01/13/21 01/14/21 01/15/21 01/16/21 23:59 23:59 23:59 23:59 Intake Total 4081 357 7464 320 Output Total 225 2350 Balance 805 -1610 1130 320 Meds/Results Medications: Active Medications Generic Name Dose Route Start Last Admin Trade Name Freq PRN Reason Stop Dose Admin Ferrous Sulfate 324 mg 01/15/21 17:00 01/16/21 09:05 Ferrous Sulfate 324 Mg Tablet PO 324 mg BIDWM EMMA Administration Furosemide 20 mg 01/13/21 20:50 01/16/21 09:05 Furosemide Inj 40 Mg/4 Ml Vial IV PUSH 20 mg BID EMMA Administration Metoprolol Tartrate 25 mg 01/13/21 20:50 01/16/21 13:21 Metoprolol Tartrate 25 Mg Tablet PO 25 mg Q6HR EMMA Administration Pantoprazole Sodium 40 mg 01/16/21 09:00 01/16/21 09:05 Pantoprazole 40 Mg Tablet PO 40 mg QAM EMMA Administration Potassium Chloride 40 meq 01/16/21 09:00 01/16/21 09:05 Potassium Chloride 20 Meq Packet
--- NOTE | 2021-01-16 21:02 | PC.NURSE ---
This patient, Hi Bonner, was transferred to [ 250] on 01/16/21 at 2102. Personal belongings sent with patient. Report given to [Pinky rn ]. Appropriate documentation sent with patient.
--- NOTE | 2021-01-16 21:04 | PC.NURSE ---
received patient in bed from imu. voices no c/o
--- NOTE | 2021-01-16 23:34 | PC.NURSE ---
NURSE AID IN ROOM AT 2255, PT WITHOUT COMPLAINTS. RETURNED 2322 FOUND PATIENT WITHOUT HEARTBEAT OR RESPIRATIONS, CODE BLUE CALLED. SEE CODE BLUE DOCUMENTATION
--- NOTE | 2021-01-16 23:53 | PDCODEBLUE ---
Code Blue Note Code Blue Note Time Arrived at Code Blue: 23:20 Initial Rhythm on Arrival: Asystole Airway Management: No airway on arrival Chest Compressions: In process on arrival to bedside Result of Code Blue: Pt Cardiac Rhythm Post Code: Asystole Code Blue Summary: Nursing staff found the patient pulseless and unresponsive at about 23:20 hrs. It is not known how long the patient had been pulseless. MAXIMILIANO XIN was called overhead. On my arrival to bedside in a few moments, nursing staff had already begun chest compressions. The patient was placed on the monitoring coordinator. Respiratory therapy began to bag ventilate the patient. After approximately 3 minutes the patient was found to be in asystole on the heart monitor and was administered 1 amp of epinephrine IV push. CPR was resumed. The patient was given 1 amp of sodium bicarbonate IV push. At the next pulse check the patient continue to be in asystole. CPR was resume. After 3 minutes had elapsed another amp of epinephrine was administered IV push. At the next pulse check the patient was again found to be in asystole. CPR was resume. Patient was administered another amp of epinephrine IV push after 3 minutes. At the next pulse check the patient was again found to be in asystole. The patient was pronounced at 11:33 p.m.
--- NOTE | 2021-01-17 01:15 | PC.NURSE ---
0045 PT SHROUDED AND TO KONG PER CART
[2021-01-17 12:02] LABS: Haptoglobin 268 mg/dL (43-212)
--- NOTE | 2021-01-17 15:49 | P.DN_ITS ---
Discharge Sum: Prov Provider Primary care physician: Prosper Brannon MD DOS 01/16/2021 Admitting provider: Rasheed Nur MD Consults: 01/13/21 Consult to Physician Routine Comment: Consulting Provider: Hi Jennings Reason for consultation: anemia, r/o gi bleed Has provider been notified: Yes 01/13/21 15:10 Consult to Physician Routine Comment: Consulting Provider: Boston Conde Reason for consultation: a fib with rvr, chf Has provider been notified: Yes 01/14/21 Consult to Physician Routine Comment: Consulting Provider: Tyler Guerra scallop cutter machine/MD group to consult: GI Reason for consultation: Hypochromic microcytic anemia Has provider been notified: Yes 01/15/21 12:43 Consult to Physician Routine Comment: Consulting Provider: Roman Harris scallop cutter machine/MD group to consult: oncology Reason for consultation: large rectosigmoid mass Has provider been notified: Yes Consult to Physician Routine Comment: Consulting Provider: Eduardo Hernandez scallop cutter machine/MD group to consult: surgery Reason for consultation: large rectosigmoid mass Has provider been notified: Yes Discharge Sum: Diag Contributing Factors (1) Acute exacerbation of congestive heart failure: (2) Atrial fibrillation with rapid ventricular response: (3) Profound anemia: (4) Leukocytosis: (5) Elevated LFTs: (6) Hyponatremia: (7) Essential hypertension: (8) Colonic mass: Discharge Sum: Summary Date and Time Date of admission: 01/13/21 15:08 GENERALIZED WEAKNESS 65 year old male with history of congestive heart failure, mitral valve prolapse and atrial fibrillation came into the ER with generalized weakness. 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 Pt is refusing active treatment. Pt was meant to be transferred to rehab facility next day due to weakness, but unfortunately in the evening. Nursing staff found the patient pulseless and unresponsive at about 23:20 hrs.[facility] [employer] was called overhead. On my arrival to bedside in a few moments, nursing staff had already begun chest compressions.Pt was pronounced at 23.33. Additional Data Attending physician: Rasheed Nur MD
[2021-01-17 16:56] LABS: SARS-CoV-2 RNA PCR Negative
== END 2021-01-16 23:34 | disposition expired | DRG 374 ==
LOC: ANHED 15:18 → ANHIMU 18:53 → ANH2MED 01-18 15:43 → ANHIMU 01-18 15:43
PROVIDERS: Internal Medicine Gastroenterology; Physician Assistant; Admitting Provider Internal Medicine; Emergency Provider Emergency Medicine; PCP Internal Medicine; Visit Provider Family Medicine
PROC: 0DJ08ZZ Inspection of Upper Intestinal Tract, Via Natural or Artificial Opening Endoscopic (ICD-10-PCS; CPT 43235; principal; 2021-01-15 11:45)
DX: C19 Malignant neoplasm of rectosigmoid junction (principal); I50.33 Acute on chronic diastolic (congestive) heart failure; E87.1 Hypo-osmolality and hyponatremia; D62 Acute posthemorrhagic anemia; I46.9 Cardiac arrest, cause unspecified; I11.0 Hypertensive heart disease with heart failure; Z20.822 Contact with and (suspected) exposure to COVID-19; K63.5 Polyp of colon; K64.8 Other hemorrhoids; K29.50 Unspecified chronic gastritis without bleeding; K44.9 Diaphragmatic hernia without obstruction or gangrene; D50.9 Iron deficiency anemia, unspecified; I48.91 Unspecified atrial fibrillation; R60.0 Localized edema; D72.829 Elevated white blood cell count, unspecified; R79.89 Other specified abnormal findings of blood chemistry; R93.89 Abnormal findings on diagnostic imaging of other specified body structures; I34.1 Nonrheumatic mitral (valve) prolapse; E78.5 Hyperlipidemia, unspecified; Z79.899 Other long term (current) drug therapy
CPT/HCPCS: 36415; 36430; 71045; 71250; 74177; 76705; 80048; 80053; 80074; 80076; 81001; 82248; 82378; 82550; 83010; 83615; 83735; 83880; 84439; 84443; 84480; 84484; 85025; 85027; 85610; 85730; 86850; 86900; 86901; 86923; 87040; 88305; 92950; 93005; 93970; 96374; 96375; 97161; 97165; 99285; A9270; C8929; C9113; C9803; J0171; J1160; J1940; J2704; J3480; J7050; J7060; J7120; P9016; Q9957; Q9967; U0003; U0005